=== PATIENT | female | born 1990 | race Caucasian/White ===

== ENCOUNTER → 2018-02-25 | Outpatient (REF) | payer BC ==
[2018-02-27 10:36] LABS: HEPATITIS C VIRUS ABY INDEX 0.1 INDEX (<0.8)
[2018-02-27 10:36] LABS: HEPATITIS A ANTIBODY IGM NEGATIVE (NEGATIVE); HEPATITIS B CORE ANTIBODY IGM NEGATIVE (NEGATIVE); HEPATITIS B SURFACE ANTIGEN NEGATIVE (NEGATIVE)
== END ==
LOC: M LAB REF 16:56
DX: L81.8 Other specified disorders of pigmentation (principal)

== ENCOUNTER 2019-01-03 09:48 | Emergency (ER) | payer BC ==
[~2019-01-03] VITALS: Ht 160 cm; Wt 65.2 kg
[2019-01-03] MEDS ORDERED: NEXP1IMP SC (09:55)
[2019-01-03] MEDS ORDERED: ONDANSETRON 4MG/2ML VIAL (J2405) IV ONE (10:15)
[2019-01-03] MEDS ORDERED: KETOROLAC 30 MG/ML VIAL (J1885) IV ONE (10:15)
[2019-01-03] MEDS ORDERED: NS 1,000 ML IV ONE (10:15)
[2019-01-03 10:32] LABS: BASO % 0.3 % (0.0-1.0); EOS % 0.6 % (0.0-3.0); HEMATOCRIT 43.2 % (36.0-47.0); HEMOGLOBIN 14.9 g/dl (12.0-15.5); LYMPH # 1.6 10^3/uL (1.5-5.0); MEAN CORPUSCULAR HEMOGLOBIN 33.3 pg (27.0-33.0); MEAN CORPUSCULAR HGB CONC 34.5 g/dl (32.0-36.5); MEAN CORPUSCULAR VOLUME 96.6 fl (80.0-96.0); MONO # 0.4 10^3/uL (0.0-0.8); MONO % 5.7 % (0.0-5.0); NEUTROPHILS # 4.3 10^3/uL (1.5-8.5); NEUTROPHILS % 68.2 % (36.0-66.0); PLATELET COUNT, AUTOMATED 189 10^3/uL (150-450); RED BLOOD COUNT 4.47 10^6/uL (4.00-5.40); WHITE BLOOD COUNT 6.4 10^3/uL (4.0-10.0)
[2019-01-03 11:01] LABS: ALBUMIN 4.2 GM/DL (3.2-5.2); BILIRUBIN,DIRECT 0.2 MG/DL (0.0-0.2); BILIRUBIN,TOTAL 0.7 MG/DL (0.2-1.0); TOTAL PROTEIN 7.9 GM/DL (6.4-8.2)
--- NOTE | 2019-01-03 11:04 | REP ---
CHEST, TWO VIEWS: There is no evidence of acute infiltrate. No pleural effusion is seen. The heart is normal in size. The mediastinal silhouette is unremarkable. The visualized osseous structures are intact. IMPRESSION: No acute pulmonary disease. Electronically Signed by Dmitry Armenta MD 01/07/2019 08:46 A
[2019-01-03 12:12] VITALS: BP 115/90
--- NOTE | 2019-01-03 14:07 | REP ---
Abdominal right upper quadrant pain and vomiting for 2 days: There is tenderness to transducer pressure over the gallbladder. There is no cholelithiasis. The gallbladder wall is mildly thickened measuring up to There is no pericholecystic fluid. There is no intrahepatic or extrahepatic biliary duct dilatation. The common biliary duct measures 2.3 mm in diameter. The hepatic parenchyma is homogeneous and otherwise are. The visualized areas of the pancreas are unremarkable. Right kidney measures 11.06 x 1 x 4 point centimeters. There is no right renal calculus, hydronephrosis, mass or cyst. There is no right upper quadrant free fluid. Impression: There is no cholelithiasis. There is no biliary duct dilatation. However, the gallbladder wall is mildly thickened. This is nonspecific. However, if acalculous cholecystitis is a diagnostic consideration from clinical findings consider radionuclide biliary scan for follow up evaluation. Electronically Signed by Dmitry Mathis MD 01/03/2019 01:58 P
--- NOTE | 2019-01-07 12:09 | ED PDOC ---
Post-Departure Follow-Up j luis colunga faxed formal report of gb us for fu Tim Ramos MD Jan 07, 2019 12:09
== END 2019-01-03 12:16 | disposition home or self-care (01) ==
LOC: M ED 09:48
DX: M54.9 Dorsalgia, unspecified (principal); R10.9 Unspecified abdominal pain; R11.10 Vomiting, unspecified; Z97.5 Presence of (intrauterine) contraceptive device
CPT/HCPCS: 36415; 71046; 76705; 80047; 80076; 81001; 83690; 84702; 85025; 85379; 96360; 96361; 96374; 96375; 99284; J1885; J2405

== ENCOUNTER → 2019-05-01 | Outpatient (REF) | payer BC ==
[~2019-05-01] MED LIST: NEXP1IMP SC
== END ==
LOC: M LAB REF 10:07
PROVIDERS: ATTEND Internal Medicine Gastroenterology
DX: R10.13 Epigastric pain (principal)

== ENCOUNTER 2019-08-15 10:59 | Day surgery (SDC) | payer BC ==
[~2019-08-15] VITALS: Ht 160 cm; Wt 61.9 kg
[~2019-08-15 10:59] MED LIST changes: +LR 1,000 ML IV ONE; +MULTCAP PO; +NS 1,000 ML IV ONE
[2019-08-15] MEDS ORDERED: propofoL 200 MG/20 ML VIAL As Ordered ONE ×2 (12:16→12:17)
[2019-08-15] MEDS ORDERED: LIDOCAINE 2% 100MG/5ML SDV (FOR ANES.) As Ordered ONE (12:16)
[2019-08-15] MEDS ORDERED: fentaNYL 100 MCG/2 ML INJECTION (J3010) As Ordered ONE (12:28)
--- NOTE | 2019-08-15 13:07 | ROOR ---
Patient Name: Corina Kirkpatrick Procedure Date: 08/15/2019 12:19 PM Date of : 1990 Age: 29 Room: [facility] [place] Gender: Female Note Status: Finalized Procedure: Colonoscopy Indications: High risk colon cancer surveillance: Personal history of colonic polyps, Incidental - Clinically significant diarrhea of unexplained origin Providers: Moisés Wade MD Referring MD: ELTON AMES NP Requesting Provider: Medicines: Monitored Anesthesia Care Complications: No immediate complications. Procedure: Pre-Anesthesia Assessment: - Prior to the procedure, a History and Physical was performed, and patient medications and allergies were reviewed. The patient is competent. The risks and benefits of the procedure and the sedation options and risks were discussed with the patient. All questions were answered and informed consent was obtained. Patient identification and proposed procedure were verified by the physician, the nurse and the anesthesiologist in the procedure room. Mental Status Examination: alert and oriented. Airway Examination: normal oropharyngeal airway and neck mobility. Respiratory Examination: clear to auscultation. CV Examination: normal. Prophylactic Antibiotics: The patient does not require prophylactic antibiotics. Prior Anticoagulants: The patient has taken no previous anticoagulant or antiplatelet agents. ASA Grade Assessment: II - A patient with mild systemic disease. After reviewing the risks and benefits, the patient was deemed in satisfactory condition to undergo the procedure. The anesthesia plan was to use monitored anesthesia care (MAC). Immediately prior to administration of medications, the patient was re-assessed for adequacy to receive sedatives. The heart rate, respiratory rate, oxygen saturations, blood pressure, adequacy of pulmonary ventilation, and response to care were monitored throughout the procedure. The physical status of the patient was re-assessed after the procedure. The Colonoscope was introduced through the anus and advanced to the terminal ileum, with identification of the appendiceal orifice and IC valve. The colonoscopy was performed without difficulty. The patient tolerated the procedure well. The quality of the bowel preparation was good. The terminal ileum, ileocecal valve, appendiceal orifice, and rectum were photographed. Scope insertion time was 2 minutes. Scope withdrawal time was 10 minutes. The total duration of the procedure was 12 minutes. Findings: The perianal and digital rectal examinations were normal. The terminal ileum appeared normal. A 3 mm polyp was found in the rectum. The polyp was sessile. The polyp was removed with a cold biopsy forceps. Resection and retrieval were complete. Verification of patient identification for the specimen was done by the physician and nurse using the patient's name, date and medical record number. Estimated blood loss was minimal. Non-bleeding external and internal hemorrhoids were found during retroflexion. The hemorrhoids were small. Normal mucosa was found in the entire colon. Biopsies for histology were taken with a cold forceps from the right colon, left colon and rectosigmoid colon for evaluation of microscopic colitis. Impression: - The examined portion of the ileum was normal. - One 3 mm polyp in the rectum, removed with a cold biopsy forceps. Resected and retrieved. - Non-bleeding external and internal hemorrhoids. - Normal mucosa in the entire examined colon. Biopsied. Recommendation: - Patient has a contact number available for emergencies. The signs and symptoms of potential delayed complications were discussed with the patient. Return to normal activities tomorrow. Written discharge instructions were provided to the patient. - High fiber diet. - Continue present medications. - Await pathology results. - Repeat colonoscopy 10 years or at age 49, depending on clinical symptoms, risk factors and for surveillance based on pathology results. - Telephone GI clinic for pathology results in 2 weeks. - Return to primary care physician. Moisés Wade MD Moisés Wade MD 08/15/2019 1:07:14 PM Electronically signed by Moisés Wade MD Number of Addenda: 0 Note Initiated On: 08/15/2019 12:19 PM Estimated Blood Loss: Estimated blood loss was minimal.
--- NOTE | 2019-08-15 13:09 | ROOR ---
Patient Name: Corina Kirkpatrick Procedure Date: 08/15/2019 12:18 PM Date of : 1990 Age: 29 Room: [facility] Gender: Female Note Status: Finalized Procedure: Upper GI endoscopy Indications: Epigastric abdominal pain Providers: Moisés Wade MD Referring MD: ELTON AMES NP Requesting Provider: Medicines: Monitored Anesthesia Care Complications: No immediate complications. Procedure: Pre-Anesthesia Assessment: - Prior to the procedure, a History and Physical was performed, and patient medications and allergies were reviewed. The patient is competent. The risks and benefits of the procedure and the sedation options and risks were discussed with the patient. All questions were answered and informed consent was obtained. Patient identification and proposed procedure were verified by the physician, the nurse and the anesthesiologist in the procedure room. Mental Status Examination: alert and oriented. Airway Examination: normal oropharyngeal airway and neck mobility. Respiratory Examination: clear to auscultation. CV Examination: normal. Prophylactic Antibiotics: The patient does not require prophylactic antibiotics. Prior Anticoagulants: The patient has taken no previous anticoagulant or antiplatelet agents. ASA Grade Assessment: II - A patient with mild systemic disease. After reviewing the risks and benefits, the patient was deemed in satisfactory condition to undergo the procedure. The anesthesia plan was to use monitored anesthesia care (MAC). Immediately prior to administration of medications, the patient was re-assessed for adequacy to receive sedatives. The heart rate, respiratory rate, oxygen saturations, blood pressure, adequacy of pulmonary ventilation, and response to care were monitored throughout the procedure. The physical status of the patient was re-assessed after the procedure. The Endoscope was introduced through the mouth, and advanced to the second part of duodenum. The upper GI endoscopy was accomplished without difficulty. The patient tolerated the procedure well. Findings: The examined esophagus was normal. The Z-line was irregular and was found 40 cm from the incisors. Scattered moderate inflammation characterized by erosions, erythema, granularity and linear erosions was found in the gastric body and in the gastric antrum. Biopsies were taken with a cold forceps for Helicobacter pylori testing. Two biopsies were obtained with cold forceps for histology in the gastric antrum, as well as three biopsies in the gastric body. Verification of patient identification for the specimen was done by the physician and nurse using the patient's name, date and medical record number. Estimated blood loss was minimal. No gross lesions were noted in the duodenal bulb and in the second portion of the duodenum. Biopsies for histology were taken with a cold forceps for evaluation of celiac disease. Impression: - Normal esophagus. - Z-line irregular, 40 cm from the incisors. - Gastritis. Biopsied. - No gross lesions in the duodenal bulb and in the second portion of the duodenum. Biopsied. - Biopsies performed in the gastric antrum and in the gastric body. Recommendation: - Patient has a contact number available for emergencies. The signs and symptoms of potential delayed complications were discussed with the patient. Return to normal activities tomorrow. Written discharge instructions were provided to the patient. - Resume previous diet. - Continue present medications. - Await pathology results. - If Biopsy shows H. pylori will need therapy with antibiotic course.. - Telephone GI clinic for pathology results in 2 weeks. - Return to primary care physician. Moisés Wade MD Moisés Wade MD 08/15/2019 1:08:37 PM Electronically signed by Mosiés Wade MD Number of Addenda: 0 Note Initiated On: 08/15/2019 12:18 PM Estimated Blood Loss: Estimated blood loss was minimal.
[2019-08-15 13:31] VITALS: BP 90/58
== END 2019-08-15 13:45 | disposition home or self-care (01) ==
LOC: M OPP 10:59
PROVIDERS: ATTEND Internal Medicine Gastroenterology
DX: K62.1 Rectal polyp (principal); K64.8 Other hemorrhoids; Z86.010 Personal history of colon polyps; R19.7 Diarrhea, unspecified; K22.8 Other specified diseases of esophagus; K29.70 Gastritis, unspecified, without bleeding; R10.13 Epigastric pain; N80.9 Endometriosis, unspecified; Z97.5 Presence of (intrauterine) contraceptive device
CPT/HCPCS: 43239; 45380; 88305; J3010

== ENCOUNTER → 2020-11-16 | Outpatient (REF) | payer BC ==
[~2020-11-16] MED LIST changes: -LR 1,000 ML IV ONE; -NS 1,000 ML IV ONE
[2020-11-17 14:40] LABS: MONO SCRN NEGATIVE (NEGATIVE)
[2020-11-18 18:07] LABS: Lyme Disease IgG/IgM Antibodie <0.91 ISR (0.00-0.90); Lyme Disease IgM Ab Quantitati <0.80 index (0.00-0.79)
== END ==
LOC: M LAB REF 16:45
PROVIDERS: ATTEND Nurse Practitioner Adult Health
DX: R53.83 Other fatigue (principal); L81.8 Other specified disorders of pigmentation; R74.01 Elevation of levels of liver transaminase levels

== ENCOUNTER → 2021-01-18 | Outpatient (REF) | payer BC ==
[2021-01-18 19:38] LABS: GC DNA AMPLIFICATION NEGATIVE (NEGATIVE)
== END ==
LOC: M SFHCWAGY 17:04
PROVIDERS: ATTEND Advanced Practice Midwife
DX: Z11.3 Encounter for screening for infections with a predominantly sexual mode of transmission (principal)
CPT/HCPCS: 87491; 87591; 87624; 87661; G0123

== ENCOUNTER → 2021-04-06 | Outpatient (REF) | payer BC | LOC: M LAB REF 15:33 | PROVIDERS: ATTEND Physician Assistant | DX: R30.0 Dysuria (principal) ==

== ENCOUNTER → 2021-04-22 | Outpatient (CLI) | payer BC | LOC: M PLALAB 11:27 | PROVIDERS: ATTEND Specialist | DX: Z34.01 Encounter for supervision of normal first pregnancy, first trimester (principal); Z36.89 Encounter for other specified antenatal screening ==

== ENCOUNTER → 2021-05-23 | Outpatient (CLI) | payer BC | LOC: M LABSMTC 11:38 | PROVIDERS: ATTEND Anesthesiology | DX: Z01.818 Encounter for other preprocedural examination (principal); Z11.52 Encounter for screening for COVID-19 ==

== ENCOUNTER 2021-05-26 06:34 | Day surgery (SDC) | payer BC ==
[~2021-05-26] VITALS: Ht 160 cm; Wt 65.3 kg
[~2021-05-26 06:34] MED LIST changes: +ACET1TAB55 PO; +LIDOCAINE 1% MDV 20ML VIAL SQ PRN; +LR 1,000 ML IV ONE
[2021-05-26 06:54] LABS: HEMATOCRIT 36.3 % (36.0-47.0); HEMOGLOBIN 12.4 g/dl (12.0-15.5); MEAN CORPUSCULAR HEMOGLOBIN 32.6 pg (27.0-33.0); MEAN CORPUSCULAR HGB CONC 34.2 g/dl (32.0-36.5); MEAN CORPUSCULAR VOLUME 95.5 fl (80.0-96.0); PLATELET COUNT, AUTOMATED 192 10^3/uL (150-450); WHITE BLOOD COUNT 4.8 10^3/uL (4.0-10.0)
[2021-05-26] MEDS ORDERED: fentaNYL 100 MCG/2 ML INJECTION As Ordered ONE (07:05)
[2021-05-26] MEDS ORDERED: ACETAMINOPHEN 1000MG 100ML IV BTL (OFIRMEV) (J0131 PER 10MG) As Ordered ONE (07:05)
[2021-05-26] MEDS ORDERED: MIDAZOLAM INJ 2MG/2ML VIAL (J2250 PER 1MG) As Ordered ONE (07:05)
[2021-05-26] MEDS ORDERED: propofoL 200 MG/20 ML VIAL As Ordered ONE ×2 (07:05→07:06)
[2021-05-26] MEDS ORDERED: LIDOCAINE 2% 100MG/5ML SDV (FOR ANES.) As Ordered ONE (07:06)
[2021-05-26] MEDS ORDERED: ONDANSETRON 4MG/2ML VIAL As Ordered ONE (07:06)
[2021-05-26] MEDS ORDERED: dexameTHASONE 4 MG/ML 1ML VIAL (J1100 PER 1MG) As Ordered ONE (07:06)
[2021-05-26] MEDS ORDERED: KETOROLAC 60MG 2ML VIAL As Ordered ONE (07:06)
[2021-05-26] MEDS ORDERED: LIDOCAINE 1% SDV 30ML VIAL As Ordered ONE (07:09)
[2021-05-26] MEDS ORDERED: SCOPOLAMINE 1MG TRANSDERMAL PATCH TOP ONE (07:25)
[2021-05-26] MEDS ORDERED: SCOPOLAMINE 1MG TRANSDERMAL PATCH As Ordered ONE (07:25)
[2021-05-26] MEDS ORDERED: LR 1,000 ML IV SCH ×2 (08:20→10:20)
[2021-05-26] MEDS ORDERED: ONDANSETRON 4MG/2ML VIAL IV PRN (08:20)
[2021-05-26] MEDS ORDERED: ACETAMINOPHEN 500 MG TAB PO ONE (08:25)
[2021-05-26] MEDS ORDERED: DOXYCYCLINE HYCLATE 100MG TABLET PO ONE ×2 (08:25)
[2021-05-26] MEDS ORDERED: MEPERIDINE INJ 25 MG/ML VIAL (J2175) As Ordered ONE (08:33)
[2021-05-26] MEDS: oxyCODONE 5MG TAB PO PRN ×2 (08:36→09:06)
[2021-05-26] MEDS: MEPERIDINE INJ 25 MG/ML VIAL (J2175) IV PRN ×2 (08:36→08:41)
[2021-05-26] MEDS: fentaNYL 100 MCG/2 ML INJECTION IV PRN ×4 (08:49→09:06)
[2021-05-26] MEDS ORDERED: oxyCODONE 5MG TAB PO PRN (10:20)
[2021-05-26] MEDS ORDERED: PROMETHAZINE INJ 25 MG/ML VIAL (J2550) IV PRN (10:20)
[2021-05-26] MEDS ORDERED: MEPERIDINE INJ 25 MG/ML VIAL (J2175) IV PRN (10:20)
[2021-05-26] MEDS ORDERED: fentaNYL 100 MCG/2 ML INJECTION IV PRN (10:20)
[2021-05-26 12:19] VITALS: BP 120/65
== END 2021-05-26 12:19 | disposition home or self-care (01) ==
LOC: M SDC 06:34
PROVIDERS: ATTEND Specialist
DX: O02.1 Missed abortion (principal)
CPT/HCPCS: 36415; 59812; 85027; 88305; J0131; J1100; J1885; J2175; J2250; J2405; J3010

== ENCOUNTER 2021-05-31 15:35 | Emergency (ER) | payer BC ==
[~2021-05-31] VITALS: Ht 160 cm; Wt 62.7 kg
[~2021-05-31 15:35] MED LIST changes: -LIDOCAINE 1% MDV 20ML VIAL SQ PRN; -LR 1,000 ML IV ONE
[2021-05-31] MEDS ORDERED: NS 1,000 ML IV ONE (18:05)
[2021-05-31 18:32] LABS: BASO % 0.6 % (0.0-1.0); EOS % 0.8 % (0.0-3.0); HEMATOCRIT 38.6 % (36.0-47.0); LYMPH # 2.1 10^3/uL (1.5-5.0); LYMPH % 43.1 % (24.0-44.0); MEAN CORPUSCULAR HEMOGLOBIN 31.7 pg (27.0-33.0); MEAN CORPUSCULAR HGB CONC 33.7 g/dl (32.0-36.5); MEAN CORPUSCULAR VOLUME 94.1 fl (80.0-96.0); MONO # 0.5 10^3/uL (0.0-0.8); NEUTROPHILS # 2.2 10^3/uL (1.5-8.5); NEUTROPHILS % 44.3 % (36.0-66.0); PLATELET COUNT, AUTOMATED 201 10^3/uL (150-450); WHITE BLOOD COUNT 4.9 10^3/uL (4.0-10.0)
[2021-05-31 19:04] LABS: BLOOD UREA NITROGEN 11 MG/DL (7-18); CALCIUM LEVEL 9.1 MG/DL (8.5-10.1); CARBON DIOXIDE LEVEL 27 MEQ/L (21-32); CHLORIDE LEVEL 106 MEQ/L (98-107); CREATININE FOR GFR 0.76 MG/DL (0.55-1.30); GLOMERULAR FILTRATION RATE > 60.0 (>60); GLUCOSE, FASTING 83 MG/DL (70-100); HCG, SERUM QUANTITATIVE 119 MIU/ML; SODIUM LEVEL 138 MEQ/L (136-145)
[2021-05-31] MEDS ORDERED: KETOROLAC 30 MG/ML 1ML VIAL IV ONE (20:35)
[2021-05-31] MEDS ORDERED: IBUP80TA PO (20:42)
[2021-05-31 20:48] VITALS: BP 120/68
== END 2021-05-31 20:53 | disposition home or self-care (01) ==
LOC: M ED 15:35
DX: N93.8 Other specified abnormal uterine and vaginal bleeding (principal)
CPT/HCPCS: 76801; 76817; 80048; 84702; 85025; 86850; 86900; 86901; 93976; 96361; 96374; 99284; J1885

== ENCOUNTER → 2021-10-31 | Outpatient (CLI) | payer BC ==
[~2021-10-31] MED LIST changes: +ETON68IM SC; +IBUP80TA PO; -NEXP1IMP SC
[2021-10-31 13:49] LABS: EOS % 0.5 % (0.0-3.0); HEMATOCRIT 38.2 % (36.0-47.0); HEMOGLOBIN 12.6 g/dl (12.0-15.5); LYMPH # 1.4 10^3/uL (1.5-5.0); LYMPH % 34.3 % (24.0-44.0); MEAN CORPUSCULAR HEMOGLOBIN 31.9 pg (27.0-33.0); MEAN CORPUSCULAR VOLUME 96.7 fl (80.0-96.0); MONO # 0.5 10^3/uL (0.0-0.8); MONO % 11.8 % (2.0-8.0); NEUTROPHILS # 2.1 10^3/uL (1.5-8.5); NEUTROPHILS % 52.1 % (36.0-66.0); PLATELET COUNT, AUTOMATED 191 10^3/uL (150-450); RED BLOOD COUNT 3.95 10^6/uL (4.00-5.40)
[2021-10-31 15:10] LABS: GC DNA AMPLIFICATION NEGATIVE (NEGATIVE)
[2021-10-31 15:36] LABS: HEPATITIS C VIRUS ABY INDEX < 0.0 INDEX (<0.8); HIV 1&2 SCREEN CENTAUR NEGATIVE (NEGATIVE)
== END ==
LOC: M PLALAB 10:35
PROVIDERS: ATTEND Specialist
DX: Z34.01 Encounter for supervision of normal first pregnancy, first trimester (principal)

== ENCOUNTER 2021-11-18 11:13 | Day surgery (SDC) | payer BC ==
[~2021-11-18] VITALS: Ht 160 cm; Wt 61.7 kg
[~2021-11-18 11:13] MED LIST changes: +DOXYCYCLINE HYCLATE 100 MG in D5W MINI-BAG PLUS 100 ML IV SCH; +PRENTAB53 PO
[2021-11-18] MEDS ORDERED: LR 1,000 ML IV SCH ×2 (11:35→14:10)
[2021-11-18 11:49] LABS: HEMATOCRIT 36.8 % (36.0-47.0); HEMOGLOBIN 12.7 g/dl (12.0-15.5); MEAN CORPUSCULAR HGB CONC 34.5 g/dl (32.0-36.5); MEAN CORPUSCULAR VOLUME 95.6 fl (80.0-96.0); PLATELET COUNT, AUTOMATED 185 10^3/uL (150-450); RED BLOOD COUNT 3.85 10^6/uL (4.00-5.40); WHITE BLOOD COUNT 4.5 10^3/uL (4.0-10.0)
[2021-11-18] MEDS ORDERED: SCOPOLAMINE 1MG TRANSDERMAL PATCH TOP ONE (12:00)
[2021-11-18] MEDS ORDERED: LIDOCAINE W/EPINEPHRINE 1% 20ML VIAL As Ordered ONE (13:14)
[2021-11-18] MEDS: DOXYCYCLINE HYCLATE 100 MG in D5W MINI-BAG PLUS 100 ML IV SCH (13:20)
[2021-11-18] MEDS ORDERED: fentaNYL 100 MCG/2 ML INJECTION As Ordered ONE (13:31)
[2021-11-18] MEDS ORDERED: dexameTHASONE 4 MG/ML 1ML VIAL (J1100 PER 1MG) As Ordered ONE (13:31)
[2021-11-18] MEDS ORDERED: LIDOCAINE 2% 100MG/5ML SDV (FOR ANES.) As Ordered ONE (13:31)
[2021-11-18] MEDS ORDERED: ACETAMINOPHEN 1000MG 100ML IV BTL (OFIRMEV) (J0131 PER 10MG) As Ordered ONE (13:31)
[2021-11-18] MEDS ORDERED: ONDANSETRON 4MG 2ML VIAL As Ordered ONE (13:31)
[2021-11-18] MEDS ORDERED: MIDAZOLAM INJ 2MG/2ML VIAL (J2250 PER 1MG) As Ordered ONE (13:31)
[2021-11-18] MEDS ORDERED: propofoL 200 MG/20 ML VIAL As Ordered ONE (13:31)
[2021-11-18] MEDS ORDERED: ONDANSETRON 4MG 2ML VIAL IV PRN (14:10)
[2021-11-18] MEDS ORDERED: fentaNYL 100 MCG/2 ML INJECTION IV PRN (14:10)
[2021-11-18] MEDS ORDERED: oxyCODONE 5MG TAB PO PRN ×2 (14:10→14:30)
[2021-11-18] MEDS ORDERED: HYDROMORPHONE HCL 0.5 MG/ 0.5 ML SYRINGE (J1170 PER 1) IV PRN (14:10)
[2021-11-18] MEDS ORDERED: KETOROLAC 60MG 2ML VIAL As Ordered ONE (14:18)
[2021-11-18] MEDS ORDERED: MEPERIDINE INJ 25 MG/ML VIAL (J2175) As Ordered ONE (14:19)
[2021-11-18] MEDS: MEPERIDINE INJ 25 MG/ML VIAL (J2175) IV PRN ×2 (14:23→14:35)
[2021-11-18] MEDS ORDERED: ACETAMINOPHEN 500 MG TAB PO PRN (14:30)
[2021-11-18 15:40] VITALS: BP 126/65
== END 2021-11-18 15:49 | disposition home or self-care (01) ==
LOC: M SDC 11:13
PROVIDERS: ATTEND Obstetrics & Gynecology
DX: O02.1 Missed abortion (principal)
CPT/HCPCS: 36415; 59820; 85027; 86850; 86900; 86901; 87635; 88305; J0131; J1100; J1885; J2175; J2250; J2405; J3010

== ENCOUNTER → 2022-01-18 | Outpatient (REF) | payer BC ==
[~2022-01-18] MED LIST changes: -DOXYCYCLINE HYCLATE 100 MG in D5W MINI-BAG PLUS 100 ML IV SCH
== END ==
LOC: M LAB REF 16:12
PROVIDERS: ATTEND Physician Assistant Medical
DX: Z32.01 Encounter for pregnancy test, result positive (principal)

== ENCOUNTER → 2022-03-02 | Outpatient (CLI) | payer BC ==
[2022-03-02 14:45] LABS: HEMATOCRIT 37.3 % (36.0-47.0); HEMOGLOBIN 12.7 g/dl (12.0-15.5); PLATELET COUNT, AUTOMATED 196 10^3/uL (150-450); RED BLOOD COUNT 3.97 10^6/uL (4.00-5.40); WHITE BLOOD COUNT 5.9 10^3/uL (4.0-10.0)
[2022-03-02 15:44] LABS: HIV 1&2 SCREEN CENTAUR NEGATIVE (NEGATIVE)
[2022-03-02 15:53] LABS: HEPATITIS C VIRUS ABY INDEX 0.1 INDEX (<0.8)
[2022-03-02 16:57] LABS: GC DNA AMPLIFICATION NEGATIVE (NEGATIVE)
== END ==
LOC: M PLALAB 11:49
PROVIDERS: ATTEND Advanced Practice Midwife
DX: Z34.91 Encounter for supervision of normal pregnancy, unspecified, first trimester (principal)

== ENCOUNTER → 2022-04-28 | Outpatient (CLI) | payer BC | LOC: M WHC 10:01 | PROVIDERS: ATTEND Advanced Practice Midwife | DX: Z34.81 Encounter for supervision of other normal pregnancy, first trimester (principal); Z3A.18 18 weeks gestation of pregnancy ==

== ENCOUNTER → 2022-05-23 | Outpatient (CLI) | payer BC | LOC: M WHC 11:50 | PROVIDERS: ATTEND Advanced Practice Midwife | DX: O09.292 Supervision of pregnancy with other poor reproductive or obstetric history, second trimester (principal); Z3A.22 22 weeks gestation of pregnancy ==

== ENCOUNTER → 2022-06-22 | Outpatient (CLI) | payer BC ==
[2022-06-22 16:32] LABS: HEMATOCRIT 36.6 % (36.0-47.0); HEMOGLOBIN 12.4 g/dl (12.0-15.5); MEAN CORPUSCULAR HGB CONC 33.9 g/dl (32.0-36.5); MEAN CORPUSCULAR VOLUME 97.3 fl (80.0-96.0); PLATELET COUNT, AUTOMATED 216 10^3/uL (150-450); RED BLOOD COUNT 3.76 10^6/uL (4.00-5.40); WHITE BLOOD COUNT 9.1 10^3/uL (4.0-10.0)
[2022-06-22 23:25] LABS: GC DNA AMPLIFICATION NEGATIVE (NEGATIVE)
== END ==
LOC: M PLALAB 10:52
PROVIDERS: ATTEND Advanced Practice Midwife
DX: Z34.82 Encounter for supervision of other normal pregnancy, second trimester (principal)

== ENCOUNTER 2022-08-22 09:30 | Inpatient (IN) | payer BC ==
[~2022-08-22] VITALS: Ht 160 cm; Wt 83.6 kg
[2022-09-19] VITALS (10 sets, daily range): BP systolic 104–133; BP diastolic 55–68; TEMP 97.1; O2SAT 96–100
[2022-09-19] MEDS ORDERED: LACTATED RINGER'S 1000 ML IV STA (05:58)
[2022-09-19] MEDS ORDERED: ceFAZolin SOD 2 GM in IV 1 EA IV ONE (06:00)
[2022-09-19] MEDS ORDERED: BICITRA 30ML SOLN UDC PO ONE (06:00)
[2022-09-19] MEDS ORDERED: LR 1,000 ML IV SCH (06:00)
[2022-09-19 07:02] LABS: HEMATOCRIT 35.1 % (36.0-47.0); HEMOGLOBIN 12.3 g/dl (12.0-15.5); MEAN CORPUSCULAR HEMOGLOBIN 33.2 pg (27.0-33.0); MEAN CORPUSCULAR VOLUME 94.6 fl (80.0-96.0); PLATELET COUNT, AUTOMATED 193 10^3/uL (150-450); RED BLOOD COUNT 3.71 10^6/uL (4.00-5.40); WHITE BLOOD COUNT 9.8 10^3/uL (4.0-10.0)
[2022-09-19] MEDS ORDERED: ACETAMINOPHEN 1000MG 100ML IV BAG As Ordered ONE (07:51)
[2022-09-19] MEDS ORDERED: ONDANSETRON 4MG 2ML VIAL As Ordered ONE (07:51)
[2022-09-19] MEDS ORDERED: KETOROLAC 60MG 2ML VIAL As Ordered ONE (07:51)
[2022-09-19] MEDS ORDERED: MORPHINE PRES-FREE INJ 10 MG/10 ML VIAL As Ordered ONE (07:51)
[2022-09-19] MEDS ORDERED: OXYTOCIN 30UNITS IN 0.9% NaCl 500ML IV BAG As Ordered ONE ×2 (07:56→08:29)
[2022-09-19] MEDS ORDERED: METOCLOPRAMIDE INJ 10MG/2ML VIAL As Ordered ONE (08:00)
[2022-09-19] MEDS ORDERED: DOCUSATE SODIUM 100MG CAPSULE PO PRN (08:50)
[2022-09-19] MEDS ORDERED: OXYTOCIN DRIP 30 UNITS in IV 1 EA IV SCH (08:50)
[2022-09-19] MEDS ORDERED: ONDANSETRON 4MG 2ML VIAL IV PRN ×2 (08:50→09:05)
[2022-09-19] MEDS ORDERED: RHOGAM 300MCG (1500IU) INJ IM SCH (08:50)
[2022-09-19] MEDS: PRENATAL VITAMINS CHEWABLE TABLET PO SCH (09:00)
[2022-09-19] MEDS ORDERED: ACET-683 PO (09:04)
[2022-09-19] MEDS ORDERED: IBUP-1022 PO (09:04)
[2022-09-19] MEDS ORDERED: OXYC-517 PO (09:04)
[2022-09-19] MEDS ORDERED: COLA100C5 PO (09:04)
[2022-09-19] MEDS ORDERED: NALOXONE INJ 0.4MG/1ML VIAL IV PRN ×2 (09:05)
[2022-09-19] MEDS ORDERED: MEPERIDINE 25 MG/ML 1ML VIAL IV PRN (09:05)
[2022-09-19] MEDS ORDERED: METOCLOPRAMIDE INJ 10MG/2ML VIAL IV PRN (09:05)
[2022-09-19] MEDS ORDERED: HYDROMORPHONE HCL 0.5 MG/ 0.5 ML SYRINGE IV PRN (09:05)
[2022-09-19] MEDS ORDERED: fentaNYL 100 MCG/2 ML INJECTION IV PRN (09:05)
[2022-09-19] MEDS ORDERED: oxyCODONE 5MG TAB PO PRN (09:05)
[2022-09-19] MEDS: SLF 3 ML SYR IV SCH ×2 (09:05→17:05)
[2022-09-19] MEDS ORDERED: **NOTE PATIENT COMMENT** MISC XX SCH (09:05)
[2022-09-19] MEDS ORDERED: diphenhydrAMINE 50MG/ML VIAL As Ordered ONE (09:33)
[2022-09-19] MEDS: diphenhydrAMINE 50MG/ML VIAL IV PRN ×2 (09:34→13:21)
[2022-09-19] MEDS: ACETAMINOPHEN 500 MG TAB PO SCH ×2 (11:35→18:47)
[2022-09-19] MEDS: SIMETHICONE 80MG CHEW TAB PO PRN (13:20)
[2022-09-19] MEDS: KETOROLAC 30 MG/ML 1ML VIAL IV SCH ×2 (16:18→20:25)
[2022-09-19] MEDS: oxyCODONE 5MG TAB PO PRN (18:48)
[2022-09-20] MEDS: ACETAMINOPHEN 500 MG TAB PO SCH ×5 (00:03→23:49)
[2022-09-20] MEDS: SLF 3 ML SYR IV SCH (01:05)
[2022-09-20 02:00] VITALS: BP 104/59; O2SAT 99
[2022-09-20] MEDS: KETOROLAC 30 MG/ML 1ML VIAL IV SCH (02:17)
[2022-09-20 05:54] VITALS: BP 114/62; O2SAT 98
[2022-09-20 06:52] LABS: HEMATOCRIT 32.5 % (36.0-47.0); MEAN CORPUSCULAR HEMOGLOBIN 32.7 pg (27.0-33.0); MEAN CORPUSCULAR HGB CONC 33.8 g/dl (32.0-36.5); MEAN CORPUSCULAR VOLUME 96.7 fl (80.0-96.0); PLATELET COUNT, AUTOMATED 176 10^3/uL (150-450); RED BLOOD COUNT 3.36 10^6/uL (4.00-5.40); WHITE BLOOD COUNT 8.1 10^3/uL (4.0-10.0)
[2022-09-20] MEDS: PRENATAL VITAMINS CHEWABLE TABLET PO SCH (08:58)
[2022-09-20] MEDS: IBUPROFEN 600MG TAB PO SCH ×3 (09:38→22:21)
[2022-09-20 10:00] VITALS: BP 113/56; O2SAT 98
[2022-09-20] MEDS: oxyCODONE 5MG TAB PO PRN ×3 (13:11→19:02)
[2022-09-20 14:00] VITALS: BP 126/59; O2SAT 96
[2022-09-20 18:00] VITALS: BP 116/66; O2SAT 99
[2022-09-20 22:00] VITALS: BP 117/59; O2SAT 98
[2022-09-21 02:00] VITALS: BP 135/59; O2SAT 98
[2022-09-21] MEDS: IBUPROFEN 600MG TAB PO SCH ×2 (04:09→11:11)
[2022-09-21] MEDS: ACETAMINOPHEN 500 MG TAB PO SCH (05:58)
[2022-09-21 06:00] VITALS: BP 120/62; O2SAT 98
[2022-09-21] MEDS: SIMETHICONE 80MG CHEW TAB PO PRN ×2 (07:49→11:10)
[2022-09-21] MEDS: oxyCODONE 5MG TAB PO PRN (07:50)
[2022-09-21] MEDS ORDERED: MEASLES,MUMPS,RUBELLA VACCINE INJ (MMR-II) SC.IMMUN ONE (09:00)
[2022-09-21 09:54] VITALS: BP 125/65; O2SAT 96
[2022-09-21] MEDS ORDERED: SIME80TA16 PO (12:13)
== END 2022-09-21 14:30 | disposition home or self-care (01) | DRG 540 ==
LOC: M LDI 09-19 05:44 → M OBS 09-19 10:14
PROVIDERS: ADMIT Obstetrics & Gynecology; ATTEND Obstetrics & Gynecology
PROC: 10D00Z1 Extraction of Products of Conception, Low, Open Approach (ICD-10-PCS; principal; 2022-09-19 07:30)
DX: O99.344 Other mental disorders complicating childbirth (principal); Z37.0 Single live birth; Z62.810 Personal history of physical and sexual abuse in childhood; Z91.410 Personal history of adult physical and sexual abuse; Z3A.39 39 weeks gestation of pregnancy

== ENCOUNTER → 2022-08-29 | Outpatient (REF) | payer BC | LOC: M PLALAB 09:54 | PROVIDERS: ATTEND Advanced Practice Midwife | DX: Z36.85 Encounter for antenatal screening for Streptococcus B (principal) ==

== ENCOUNTER → 2023-11-01 | Outpatient (REF) | payer BC ==
[~2023-11-01] MED LIST changes: +ACET-683 PO; +COLA100C5 PO; +IBUP-1022 PO; +OXYC-517 PO; +SIME80TA16 PO
[2023-11-03 12:33] LABS: HPV APTIMA Not Detected (Not Detected)
== END ==
LOC: M SFHCWAGY 15:11
PROVIDERS: ATTEND Nurse Practitioner Family
DX: Z12.4 Encounter for screening for malignant neoplasm of cervix (principal)
CPT/HCPCS: 87624; G0123

== ENCOUNTER 2023-12-21 16:34 | Emergency (ER) | payer BC ==
[~2023-12-21] VITALS: Ht 160 cm; Wt 67.7 kg
[2023-12-21] MEDS: ALBUTEROL 90 MCG/ACT 8GM HFA INHALER INH ONE (18:21)
[2023-12-21] MEDS: NS 1,000 ML IV ONE (18:54)
[2023-12-21 18:55] LABS: BASO % 0.3 % (0.0-1.0); EOS # 0.1 10^3/uL (0.0-0.5); HEMATOCRIT 41.5 % (36.0-47.0); HEMOGLOBIN 14.2 g/dl (12.0-15.5); LYMPH % 42.2 % (24.0-44.0); MEAN CORPUSCULAR HEMOGLOBIN 31.3 pg (27.0-33.0); MEAN CORPUSCULAR HGB CONC 34.2 g/dl (32.0-36.5); MEAN CORPUSCULAR VOLUME 91.4 fl (80.0-96.0); MONO # 0.5 10^3/uL (0.0-0.8); MONO % 7.5 % (2.0-8.0); NEUTROPHILS # 3.5 10^3/uL (1.5-8.5); NEUTROPHILS % 48.9 % (36.0-66.0); PLATELET COUNT, AUTOMATED 214 10^3/uL (150-450); RED BLOOD COUNT 4.54 10^6/uL (4.00-5.40); WHITE BLOOD COUNT 7.1 10^3/uL (4.0-10.0)
[2023-12-21 19:20] LABS: BLOOD UREA NITROGEN 16 MG/DL (9-23); CALCIUM LEVEL 9.6 MG/DL (8.5-10.1); CARBON DIOXIDE LEVEL 24 MMOL/L (20-31); CHLORIDE LEVEL 105 MMOL/L (98-107); CK-MB VALUE MASS < 1.0 NG/ML (<3.6); CREATININE FOR GFR 0.74 MG/DL (0.55-1.30); GLOMERULAR FILTRATION RATE > 60.0 (>60); GLUCOSE, FASTING 83 MG/DL (60-100); INR 1.13; PARTIAL THROMBOPLASTIN TIME 38.4 SECONDS (24.8-34.2); POTASSIUM SERUM 3.5 MMOL/L (3.5-5.1); PROTHROMBIN TIME 14.1 SECONDS (12.5-14.5); SODIUM LEVEL 133 MMOL/L (136-145)
[2023-12-21 19:21] LABS: HCG, SERUM QUALITATIVE NEGATIVE (NEGATIVE)
[2023-12-21 19:22] LABS: CPK CREATINE PHOSPHOKINASE 64 U/L (34-145); MB/CK RELATIVE INDEX 1.56 (< OR =4)
[2023-12-21] MEDS ORDERED: ISOVUE-370 76% 100ML VIAL As Ordered ONE (19:38)
[2023-12-21 20:21] LABS: CK-MB VALUE MASS < 1.0 NG/ML (<3.6)
[2023-12-21 20:26] LABS: CPK CREATINE PHOSPHOKINASE 48 U/L (34-145); MB/CK RELATIVE INDEX 2.08 (< OR =4)
[2023-12-21] MEDS ORDERED: VENTAER INH (21:05)
[2023-12-21] MEDS: KETOROLAC 30 MG/ML 1ML VIAL IV ONE (21:44)
[2023-12-21 21:54] VITALS: BP 104/67; TEMP 97.8; O2SAT 100
== END 2023-12-21 22:02 | disposition home or self-care (01) ==
LOC: M ED 16:34
DX: R07.89 Other chest pain (principal); R06.00 Dyspnea, unspecified; F41.9 Anxiety disorder, unspecified; Z91.030 Bee allergy status; Z79.1 Long term (current) use of non-steroidal anti-inflammatories (NSAID); Z79.51 Long term (current) use of inhaled steroids; Z79.899 Other long term (current) drug therapy; Z79.810 Long term (current) use of selective estrogen receptor modulators (SERMs)
CPT/HCPCS: 71275; 80048; 82550; 82553; 84484; 84703; 85025; 85610; 85730; 87426; 93005; 93041; 94640; 94664; 96361; 96374; 99284; J1885; Q9967

== ENCOUNTER → 2024-03-12 | Outpatient (CLI) | payer BC ==
[~2024-03-12] MED LIST changes: +VENTAER INH
[2024-03-12 15:26] LABS: HEMOGLOBIN 11.9 g/dl (12.0-15.5); MEAN CORPUSCULAR HEMOGLOBIN 31.6 pg (27.0-33.0); MEAN CORPUSCULAR VOLUME 92.8 fl (80.0-96.0); PLATELET COUNT, AUTOMATED 230 10^3/uL (150-450); RED BLOOD COUNT 3.77 10^6/uL (4.00-5.40)
[2024-03-12 16:32] LABS: HIV 1&2 SCREEN NEGATIVE (NEGATIVE)
[2024-03-12 16:40] LABS: HEPATITIS C VIRUS ABY INDEX 0.02 INDEX (<0.8)
[2024-03-12 17:10] LABS: GC DNA AMPLIFICATION NEGATIVE (NEGATIVE)
== END ==
LOC: M PLALAB 12:43
PROVIDERS: ATTEND Nurse Practitioner Family
DX: O09.291 Supervision of pregnancy with other poor reproductive or obstetric history, first trimester (principal); Z3A.00 Weeks of gestation of pregnancy not specified

== ENCOUNTER → 2024-04-01 | Outpatient (CLI) | payer BC | LOC: M PLALAB 12:43 | PROVIDERS: ATTEND Nurse Practitioner Family | DX: O09.291 Supervision of pregnancy with other poor reproductive or obstetric history, first trimester (principal) ==

== ENCOUNTER → 2024-04-24 | Outpatient (CLI) | payer BC | LOC: M PLALAB 15:03 | PROVIDERS: ATTEND Obstetrics & Gynecology | DX: Z34.80 Encounter for supervision of other normal pregnancy, unspecified trimester (principal) ==

== ENCOUNTER → 2024-05-28 | Outpatient (CLI) | payer BC | LOC: M WHC 12:17 | PROVIDERS: ATTEND Nurse Practitioner Family | DX: Z36.89 Encounter for other specified antenatal screening (principal) ==

== ENCOUNTER → 2024-07-01 | Outpatient (CLI) | payer BC | LOC: M RAD 10:07 | PROVIDERS: ATTEND Obstetrics & Gynecology | DX: O35.13X0 Maternal care for (suspected) chromosomal abnormality in fetus, Trisomy 21, not applicable or unspecified (principal) ==

== ENCOUNTER → 2024-07-18 | Outpatient (CLI) | payer BC ==
[2024-07-18 18:38] LABS: Trichomonas vaginalis (AMP) NOT DETECTED (NEGATIVE)
[2024-07-18 18:45] LABS: HEMOGLOBIN 11.5 g/dl (12.0-15.5); MEAN CORPUSCULAR HEMOGLOBIN 32.6 pg (27.0-33.0); MEAN CORPUSCULAR HGB CONC 33.8 g/dl (32.0-36.5); MEAN CORPUSCULAR VOLUME 96.3 fl (80.0-96.0); PLATELET COUNT, AUTOMATED 216 10^3/uL (150-450); RED BLOOD COUNT 3.53 10^6/uL (4.00-5.40); WHITE BLOOD COUNT 8.4 10^3/uL (4.0-10.0)
[2024-07-18 18:51] LABS: GLUCOSE CHALLENGE TEST 1 HOUR 107 MG/DL (LESS THAN 140)
[2024-07-18 19:02] LABS: GC DNA AMPLIFICATION NEGATIVE (NEGATIVE)
[2024-07-18 19:25] LABS: HIV 1&2 SCREEN NEGATIVE (NEGATIVE)
[2024-07-18 19:33] LABS: HEPATITIS C VIRUS ABY INDEX 0.04 INDEX (<0.8)
== END ==
LOC: M PLALAB 14:17
PROVIDERS: ATTEND Advanced Practice Midwife
DX: Z34.82 Encounter for supervision of other normal pregnancy, second trimester (principal)

== ENCOUNTER → 2024-07-29 | Outpatient (CLI) | payer BC | LOC: M WHC 12:54 | PROVIDERS: ATTEND Obstetrics & Gynecology | DX: O35.13X0 Maternal care for (suspected) chromosomal abnormality in fetus, Trisomy 21, not applicable or unspecified (principal); Z3A.29 29 weeks gestation of pregnancy; O40.3XX0 Polyhydramnios, third trimester, not applicable or unspecified ==